=== PATIENT | male | born 1945 | race Caucasian/White ===

== ENCOUNTER → 2019-02-12 16:01 | Outpatient (CLI) | payer MEDICARE, OTHER | END | disposition home or self-care (01) | LOC: D.RAD 16:01 | PROVIDERS: ATTEND Family Medicine | DX: M41.9 Scoliosis, unspecified (principal); M79.671 Pain in right foot; M79.672 Pain in left foot ==

== ENCOUNTER → 2020-11-10 09:02 | Outpatient (CLI) | payer MEDICARE, OTHER | END | disposition home or self-care (01) | LOC: D.HCCARDIO 09:02 → D.HCCECHO 10:00 | PROVIDERS: ATTEND Internal Medicine Cardiovascular Disease | DX: I20.9 Angina pectoris, unspecified (principal); I10 Essential (primary) hypertension ==

== ENCOUNTER 2020-11-22 11:23 | Day surgery (SDC) | payer MEDICARE, OTHER ==
[~2020-11-22] VITALS: Ht 177.8 cm; Wt 92.9 kg
--- NOTE | ~2020-11-22 | HEMODYNAMI ---
PATIENT:JIM QUINTERO MEDICAL RECORD: [id number] : 47 LOCATION:[facility] ADMISSION DATE: 11/22/20 Generatedon:114:04 Patient name: JIM QUINTERO Patient #: [id number] SSN: [id number] : 1945 Date of study: 11/22/2020 Page: Of Hemodynamic Procedure Report Patient Data Patient Demographics Procedure consent was obtained First Name: JIM Gender: Male Last Name: INGRID : 1945 Patient #: [id number] Age: 75 year(s) Race: SSN: [id number] Additional ID: [id number] Contact details Address: [address] State: [place] City: [place] Zip code: [address] Past Medical History Allergies Allergen Reaction Date Comments Reported Penicillins 11/22/2020 Admission Admission Data Admission Date: 11/22/2020 Admission Time: 11:23 Arrival Date: 11/22/2020 Arrival Time: 0:00 Admit Source: Other Insurance Payor: Medicare [facility] #: [id number] Height (in.): 62 BSA: 1.89 (m2) Height (cm.): 157.48 BMI: 35.48 (kg/m2) Weight (lbs.): 194 Weight (kg.): 88 Lab Results Lab Result Date: 11/22/2020 Lab Result Time: 0:00 Biochemistry Name Units Result Min Max BUN mg/dl 16 --(---*)-- 7 18 Creatinine mg/dl 1.1 --(--*-)-- 0.6 1.3 eGFR ml/min 69 *-(----)-- 90 120 NONAFRICAN CBC Name Units Result Min Max Hemoglobin g/dl 16 --(--*-)-- 13.5 17.5 Procedure Procedure Types Cath Procedure Diagnostic Procedure C LH w/Coronaries FFR/IVUS FFR Initial Sedation Charges Moderate Sedation 10-24 minutes Procedure Description Procedure Date Procedure Date: 11/22/2020 Procedure Start Time: 13:39 Procedure Staff Name Function Lance Daley RN Nurse Chad Sylvester MD Performing Physician Sandi Crain RT Scrub Cherry Alvarez RT Monitor Procedure Data Cath Procedure Fluoroscopy Diagnostic fluoroscopy Total fluoroscopy Time: 5.2 time: 5.2 min min Diagnostic fluoroscopy Total fluoroscopy dose: dose: 1157 mGy 1157 mGy Contrast Material Contrast Material Type Amount (ml) Isovue 300 86 Entry Location Entry Primary Successful Side Size Upsize Upsize Entry Closure Vazquez ccessful Closure Location (Fr) 1 (Fr) 2 (Fr) Remarks Device Remarks Radial Right 6 Fr Mechanical artery Short Compression Estimated blood loss: 5 ml Diagnostic catheters Device Type Used For End Catheter Placement DIAGNOSTIC Clinton 110cm 5 LV Angiography Fr catheter ([id number]) DIAGNOSTIC Clinton 110cm 5 Left Coronary Fr catheter (887598) Angiography DIAGNOSTIC Clinton 110cm 5 Right Coronary Fr catheter (702265) Angiography DIAGNOSTIC Pigtail 5Fr Aortic Root catheter ([id number]) Angiography Procedure Complications No complications Procedure Medications Medication Administration Route Dosage Oxygen etCO2 Nasal cannula 2 l/min Lidocaine 2% added to field 20 Heparin Flush Bag added to field 2 bags (1000units/500ml NS) 0.9% NaCl I.V. 100 ml/hr Radial Cocktail added to field 1 syringe (Verapamil 2mg/Nitro 400mcg/Heparin 1500units) Fentanyl I.V. 50 mcg Versed I.V. 1 mg Radial Cocktail I.A. 1 syringe (Verapamil 2mg/Nitro 400mcg/Heparin 1500units) Versed I.V. 1 mg Fentanyl I.V. 50 mcg Versed I.V. 0.5 mg Versed I.V. 0.5 mg Versed I.V. 1 mg Heparin Bolus I.V. 5000 units Hemodynamics Rest BSA: 1.89 (m2) HGB: 16 (g/dl) O2 Consumption: Estimated: 211.02 (ml/min) O2 Cons umption indexed: Estimated:111.65 (ml/min/m) Heart Rate: 61 (bpm) Pressure Samples Time Site Value (mmHg) Purpose Heart Use Rate(bpm) 13:41 LV 116/-7,2 Snapshot 70 13:42 AO 117/67(88) Pullback 61 13:42 LV 101/-6,0 Pullback 61 13:43 AO 89/59(74) Snapshot 61 13:47 AO 100/50(73) Snapshot 63 Gradients Valve Time Site 1 Site 2 Mean SEP/DFP Peak To Heart Use (mmHg) (sec/min) Peak Rate (mmHg) (bpm) Aortic 13:42 LV AO 0 3 0 61 101/-6,0 117/67(88) Calculations Valve P-P Mean Valve Index Valve Source Name Gradient Area Flow (cm2) Aortic 0 0 0 0 Snapshots Pre Cath Intra NCS Post Cath Vital Signs Time Heart Resp SPO2 etCO2 NIBP (mmHg) Rhythm Pain Sedation Rate (ipm) (%) (mmHg) Status Level (bpm) 13:15:19 66 18 98 24.6 168/106(153) NSR 0 (11) 10(A) , No pain 13:19:35 55 11 96 33.6 138/82(93) SB 0 (11) 10(A) , No pain 13:23:47 54 12 93 35.9 124/82(94) SB 0 (11) 10(A) , No pain 13:28:46 53 11 96 35.9 138/82(98) SB 0 (11) 10(A) , No pain 13:32:56 52 12 96 31.4 137/86(122) SB 0 (11) 10(A) , No pain 13:37:04 59 12 95 14.2 132/90(106) SB 0 (11) 10(A) , No pain 13:41:14 61 12 94 29.9 104/78(90) SB 0 (11) 9(A) , No pain 13:45:15 61 14 94 32.1 118/71(97) SB 0 (11) 9(A) , No pain 13:49:23 60 13 96 34.4 107/73(86) SB 0 (11) 9(A) , No pain 13:53:27 58 16 96 31.4 110/69(93) SB 0 (11) 10(A) , No pain 13:57:31 61 14 97 32.9 112/76(89) SB 0 (11) 10(A) , No pain 14:01:34 55 16 98 32.9 122/80(97) SB 0 (11) 10(A) , No pain Medications Time Medication Route Dose Verified Delivered Reason Not es Effectiveness by by 13:14:20 Oxygen etCO2 2 l/min Chad Buffie used for Nasal Higinio Daley RN procedure cannula 13:14:27 Lidocaine 2% added 20ml Chad Chad for local to vial Higinio Sylvester MD anesthetic field 13:14:34 Heparin Flush added 2 bags Chad Chad used for Bag to Higinio Sylvester MD procedure (1000units/500ml field NS) 13:14:45 0.9% NaCl I.V. 100 Chad Buffie Per physician ml/hr Higinio Daley RN 13:15:37 Radial Cocktail added 1 Chad Chad for (Verapamil to syringe Higinio Sylvester MD vasodilation 2mg/Nitro field 400mcg/Heparin 1500units) 13:38:18 Fentanyl I.V. 50 mcg Chad Buffie for sedation Higinio Daley RN 13:38:24 Versed I.V. 1 mg Chad Buffie for sedation Higinio Daley RN 13:40:14 Versed I.V. 1 mg Chad Buffie for sedation Higinio Daley RN 13:40:27 Radial Cocktail I.A. 1 Chad Chad for (Verapamil syringe Higinio Sylvester MD vasodilation 2mg/Nitro 400mcg/Heparin 1500units) 13:42:21 Fentanyl I.V. 50 mcg Chad Buffie for sedation Higinio Daley RN 13:42:44 Versed I.V. 0.5 mg Chad Buffie for sedation Higinio Daley RN 13:45:19 Versed I.V. 0.5 mg Chad Buffie for sedation Higinio Daley RN 13:46:41 Versed I.V. 1 mg Chad Buffie for sedation Higinio Daley RN 13:52:14 Heparin Bolus I.V. 5000 Chad Buffie for james ified units Higinio Daley RN anticoagulation with joaquim ho rn Procedure Log Time Note 11:42:32 Informed consent obtained and on chart 11:42:49 Diagnostic Cath Status : Elective 11:43:07 Arrival Date: 11/22/2020 12:00:00 AM 11:43:08 Admit Source: Other 11:43:12 Insurance Payor : Medicare 11:43:35 ACC Patient presents with Stable Angina CCS Anginal Class 2--Slight limitation of ordinary activity. 11:43:38 Procedure Status Elective Heart Cath (OP). 11:43:40 Time tracking: Regular hours (M-F 7:00 - 5:00) 11:43:45 Plan of Care:Hemodynamics will remain stable., Cardiac rhythm will remain stable., Comfort level will be maintained., Respiratory function will remain adequate., Patient/ family verbilizes understanding of procedure., Procedure tolerated without complication., Recovers from procedure without complications.. 12:54:04 Patient Height : 62 inches 12:54:20 Patient Weight : 194 lbs 12:56:48 Lab Result : eGFR NONAFRICAN 69 ml/min 12:56:48 Lab Result : Hemoglobin 16 g/dl 12:56:48 Lab Result : BUN 16 mg/dl 12:56:48 Lab Result : Creatinine 1.1 mg/dl 12:59:46 Sandi Crain RT(R) sent for patient. Start room use. 13:07:21 Patient received from Pre/Post Procedure Room to CCL 2 Alert and oriented. Tansferred to table in Supine position. 13:07:22 Warm blankets applied, and fede hugger turned on for patient comfort. 13:07:23 Correct patient and procedure confirmed by team. 13:07:23 ECG and BP/O2 sat monitors applied to patient. 13:07:24 Full Disclosure recording started 13:07:52 H&P Date Dictated: 11/01/2020 Within 30 days and on chart., H&P Addendum completed by physician on day of procedure. (MUST COMPLETE FOR ALL OUTPATIENTS). 13:07:53 Pre-procedure instructions explained to patient. 13:07:53 Pre-op teaching completed and patient verbalized understanding. 13:07:55 Family in patients room. 13:07:56 Patient NPO since Midnight. 13:08:10 Patient allergic to Penicillins 13:08:17 Is the patient allergic to Iodine/contrast media? No. 13:09:19 Is patient on blood thinner?No 13:09:22 Bleeding risk .01%. 13:09:24 Patient diabetic? Yes. 13:09:26 If diabetic: On Metformin? No 13:09:44 Previous problem with sedation/anesthesia? No ? 13:09:45 Snore? Yes 13:09:46 Sleep apnea? No 13:09:47 Deviated septum? No 13:09:47 Opens mouth fully? Yes 13:09:48 Sticks out tongue? Yes 13:09:50 Airway obstruction? No ? 13:09:52 Dentures? No ? 13:10:25 Pre procedure: right dorsailis pedis pulse 2+ Normal; easily identifiable; not easily obliterated 13:10:30 Modified Charan's test Radial < 7 seconds 13:10:33 Patient pain scale 0/10 ?. 13:10:42 IV patent on arrival in left forearm with 0.9% NaCl at [facility]. 13:10:48 Lab results completed and on chart. 13:14:10 Vital chart was started 13:14:20 Oxygen 2 l/min etCO2 Nasal cannula was administered by Lance Daley RN; used for procedure; Verbal order read back and verified. 13:14:27 Lidocaine 2% 20ml vial added to field was administered by Chad Sylvester MD; for local anesthetic; Verbal order read back and verified. 13:14:34 Heparin Flush Bag (1000units/500ml NS) 2 bags added to field was administered by Chad Sylvester MD; used for procedure; Verbal order read back and verified. 13:14:45 0.9% NaCl 100 ml/hr I.V. was administered by Lance Daley RN; Per physician; Verbal order read back and verified. 13:15:37 Radial Cocktail (Verapamil 2mg/Nitro 400mcg/Heparin 1500units) 1 syringe added to field was administered by Chad Sylvester MD; for vasodilation; Verbal order read back and verified. 13:16:29 Rhythm: sinus rhythm 13:16:31 Baseline sample Acquired. 13:16:58 Stress Test: yes; abnormal fixed inferior; reversible apical 13:17:03 Risk of Mortality: 0.1 13:17:07 Risk of blood transfusion: 0.1 13:17:10 Risk of JOE: 0.2 13:17:13 Right Radial & Right Groin area was prepped with chlora-prep and draped in sterile fashion 13:17:14 Alarms reviewed by R. N. 13:17:15 Sharps counted by scrub and verified by R.N. 13:17:18 Use device set Radial Dx or PCI 13:17:20 ACIST Syringe (54659) opened to sterile field. 13:17:20 Medline Cath Pack ([id number]) opened to sterile field. 13:17:20 Bag Decanter () opened to sterile field. 13:17:21 ACIST Hand Control (03820) opened to sterile field. 13:17:21 ACIST Manifold (01337) opened to sterile field. 13:17:23 MBrace Wrist Support ([id number]) opened to sterile field. 13:17:24 NEEDLE Cook 21G 4cm Radial (V39889) opened to sterile field. 13:17:26 SHEATH 6FR RAIN (0410226) opened to sterile field. 13:17:28 EMERALD Guide Wire (617-517) opened to sterile field. 13:30:47 Zero performed for pressure channel P1 13:33:02 Physician arrived 13:38:00 Final Timeout: patient, procedure, and site verified with staff and physician. All members of the team are in agreement. 13:38:03 Right Radial & Right Groin site verified by team. 13:38:07 Fire Safety Assessment: A--An alcohol-based skin anteseptic being used preoperatively., C--Open oxygen or nitrous oxide is being used., D--An ESU, laser, or fiber-optic light is being used. 13:38:11 Physical assessment completed. ASA score P 2 - A patient with mild systemic disease as per Chad Sylvester MD. 13:38:15 2) 60-89 Mildly reduced kidney function, and other findings (as for stage 1) point to kidney disease. 13:38:17 Maximum allowable contrast dose (3.7 X eGFR X 0.75)192 ml. 13:38:18 Fentanyl 50 mcg I.V. was administered by Lance Daley RN; for sedation; Verbal order read back and verified. 13:38:20 Sedation plan: IV Moderate Sedation Medication:Versed, Fentanyl 13:38:24 Versed 1 mg I.V. was administered by Lance Daley RN; for sedation; Verbal order read back and verified. 13:38:24 Procedure started. 13:39:27 Local anesthetic to right radial artery with Lidocaine 2% by Chad Sylvester MD.INITIAL ACCESS ONLY 13:39:31 A 6 Fr Short sheath was inserted into the Right Radial artery 13:40:14 Versed 1 mg I.V. was administered by Lance Daley RN; for sedation; Verbal order read back and verified. 13:40:14 A DIAGNOSTIC Clinton 110cm 5 Fr catheter (566525) was advanced over the wire and used for LV Angiography. 13:40:27 Radial Cocktail (Verapamil 2mg/Nitro 400mcg/Heparin 1500units) 1 syringe I.A. was administered by Chad Sylvester MD; for vasodilation; Verbal order read back and verified. 13:42:09 LV gram done using DANIEL 13:42:11 LV hemodynamics recorded. 13:42:14 Injector settings: Ml/sec: 10, Volume: 20, 13:42:19 EF : 55 % 13:42:21 Fentanyl 50 mcg I.V. was administered by Lance Daley RN; for sedation; Verbal order read back and verified. 13:42:44 Versed 0.5 mg I.V. was administered by Lance Daley RN; for sedation; Verbal order read back and verified. 13:42:58 A DIAGNOSTIC Clinton 110cm 5 Fr catheter (985357) was advanced over the wire and used for Left Coronary Angiography. 13:44:56 A DIAGNOSTIC Clinton 110cm 5 Fr catheter (166620) was advanced over the wire and used for Right Coronary Angiography. 13:45:19 Versed 0.5 mg I.V. was administered by Lance Daley RN; for sedation; Verbal order read back and verified. 13:45:29 Catheter removed. 13:46:41 Versed 1 mg I.V. was administered by Lance Daley RN; for sedation; Verbal order read back and verified. 13:46:44 A DIAGNOSTIC Pigtail 5Fr catheter ([id number]) was advanced over the wire and used for Aortic Root Angiography. 13:47:23 Aortic Root visualized 13:49:10 Catheter removed. 13:49:34 GUIDE 6FR XBLAD 3.5 catheter ([id number]) opened to sterile field. 13:49:44 TUBING High Pressure Extension Tubing (Higinio) ([id number]) opened to sterile field. 13:49:45 INFLATOR Merit BasixCompak (VI7862) opened to sterile field. 13:50:39 [place] OmniWire (58827) opened to sterile field. 13:50:46 PCI Cath status Elective 13:51:26 Procedure type changed to Cath procedure, Diagnostic procedure, LHC, LHC w/Coronaries, FFR/IVUS, FFR Initial, Sedation Charges, Moderate Sedation 10-24 minutes 13:51:51 6 Fr XBLAD 3.5 guide catheter was inserted over the wire 13:52:14 Heparin Bolus 5000 units I.V. was administered by Lance Daley RN; for anticoagulation; verified with joaquim ho rn Verbal order read back and verified. 13:53:10 OMNI wire advanced. 13:53:19 Pressure wire advanced. 13:54:39 Wire advanced across lesion. 13:55:39 mLAD lesion measured at 0.94 with IFR 13:56:24 Wire removed. 13:56:34 Guide catheter removed. 13:56:59 ACT drawn. 13:57:11 Sheath removed intact; hemostasis achieved with Mechanical Compression to the Right Radial artery. 13:57:14 Procedure ended.(Physican Out) 13:57:26 Fluoroscopy time 05.20 minutes. 13:57:35 Flurop Dose total: 1157 13:57:35 Fluoroscopy dose: 1157 mGy 13:57:38 Dose Area Product 162 mGy/cm. 13:57:42 Contrast amount:Isovue 300 86ml. 13:57:44 Maximum allowable dose exceeded? No. 13:57:46 Sharps counted by scrub and verified by R.N. 13:57:50 [place] band inflated with 10cc of air. 13:57:52 Insertion/operative site no bleeding no hematoma. 13:58:10 Post right radial artery:stable, clean and dry 13:58:12 Post Procedure Pulses reassessed and unchanged 13:58:19 Post-procedure physical assessment completed. ASA score P 2 - A patient with mild systemic disease as per Chad Sylvester MD. 13:58:26 Post procedure rhythm: unchanged. 13:58:28 Estimated blood loss: 5 ml 13:58:29 Post procedure instruction explained to patient.Patient verbalizes understanding. 13:58:30 Patient needs reinforcement of post procedure teaching. 13:58:34 Procedure Complication : No complications 13:58:40 Operative report dictated upon procedure completion. 13:58:40 See physician's report for complete and final results. 13:58:51 ZEPHYR REGULAR TR BAND (087903) opened to sterile field. 14:00:05 Procedure and supply charges have been captured, reviewed, submitted and are correct. 14:01:35 Report given to Pre/Post Procedure Room. 14:02:21 ACT drawn and resulted at 296 seconds. (normal therapeutic range 180-240 seconds). 14:02:39 Patient transfered to Pre/Post Procedure Room with Stretcher. 14:03:24 Sandi Crain RT(R) was relieved by Cherry Counts RT(R) as monitoring person 14:03:49 Cherry Counts RT(R) was relieved by Cherry Counts RT(R) as monitoring person 14:04:12 Vital chart was stopped Device Usage Item Name Manufacture Quantity Catalog Hospital Part Current Minima l Lot# / Number Charge Number Stock Stock Serial# Code ACIST Acist 1 90041 659881 179017 449099 20 Syringe Medical (80719) Systems Inc Medline Medline 1 [id number] 330666 78872 562607 5 Cath Pack ([id number]) Bag Microtek 1 2001S 094259 52405 637829 5 Decanter Medical Inc. () ACIST Hand Acist 1 47449 153876 314002 319970 5 Control Medical (71988) Systems Inc ACIST Acist 1 77454 595230 231848 477814 5 Manifold Medical (41228) Systems Inc MBrace Advanced 1 140-0250-00 575481 41348 439231 5 Wrist Vascular Support Dynamics (213097396) NEEDLE Cook Cook Medical 1 Z93645 572189 994928 020255 5 21G 4cm Radial (O08992) SHEATH 6FR Cardinal 1 2461669 798487 1860659 332790 5 [facility] (1087320) EMERALD Cardinal 1 502-455 157043 820041 636560 5 Guide Wire Health (502-455) DIAGNOSTIC Terumo 1 40-5013 178585 761769 328541 5 Clinton 110cm 5 Fr catheter (479376) DIAGNOSTIC Cardinal 1 507279P 669518 040411 762752 5 Pigtail 5Fr Health catheter (305374I) GUIDE 6FR Cardinal 1 [id number] 755445 164484 986305 10 XBLAD 3.5 Health catheter (35585842) TUBING High Merit 1 [id number] 495198 05769 865608 10 Pressure Medical Extension Tubing (Sylvester) (UG3842D) INFLATOR Merit 1 JE0959 017204 609567 751677 15 [facility] BasixCompak (AE1441) [place] 1 7889382 040538 64178 9959 5 OmniWire (03653) ZEPHYR Cardinal 1 106389 833743 3086527 507942 5 REGULAR TR Health BAND (455747) Signature Audit [place] Stage Time Signature Unsigned Intra-Procedure 11/22/2020 Lance Daley RN 2:03:04 PM Intra-Procedure 11/22/2020 Cherry 2:03:39 PM Counts RT(R) Intra-Procedure 11/22/2020 Chad Sylvester MD 2:04:09 PM Signatures Nurse : Lance Daley RN Signature : Date : Time : Performing Physician : Signature : Chad Sylvester MD Date : Time : Monitor : Cherry Signature : Counts RT Date : Time : [address] [address]
[2020-11-22] MEDS ORDERED: METOPROLOL TART50 MG PO (12:06)
[2020-11-22] MEDS ORDERED: LIPITOR20 MG PO (12:06)
[2020-11-22] MEDS ORDERED: GLIPIZIDE5 MG PO (12:06)
[2020-11-22 12:31] VITALS: BP 178/82; Ht 177.8 cm; Wt 92.9 kg
[2020-11-22 12:38] LABS: BASOPHILS 0.5 % (0-2); HEMATOCRIT 46.7 % (42.0-54.0); IMMATURE GRANULOCYTES 0.2 % (0-5); LYMPHOCYTE ABS# 1.35 10x3/uL (1.32-3.57); LYMPHOCYTES 23.2 % (15-50); MCH 31.9 pg (26.0-34.0); MCHC 34.3 g/dL (31.0-37.0); MCV 93.2 fL (80.0-100.0); MEAN PLATELET VOLUME 10.1 fL (7.4-10.4); MONOCYTES 8.2 % (2-11); NEUTROPHIL ABS# 3.54 10x3/uL (1.78-5.38); NEUTROPHILS 60.9 % (40-80); PLATELET COUNT 160 10x3/uL (130-400); RBC 5.01 10x6/uL (4.20-6.10); RDW 13.9 % (11.5-14.5); WBC 5.8 10x3/uL (4.8-10.8)
[2020-11-22 12:48] LABS: ANION GAP 13.7 mmol/L (8-16); CALCIUM 9.7 mg/dL (8.5-10.1); CARBON DIOXIDE 25.3 mmol/L (21.0-32.0); CHOL - HDL RATIO 2.9 ratio (2.3-4.9); CREATININE - SERUM 1.1 mg/dL (0.6-1.3); LDL-HDL RATIO 1.6 ratio (1.5-3.5)
--- NOTE | 2020-11-22 14:10 | NUR ---
PT REC'D TO CATH RECOVERY ROOM 9 VIA STRETCHER. MONITORS ESTAB. NO FAMILY AT BS. SEE CALENDER LET OFF HELPER FLOWSHEETS. ALARMS ON AND C/L IN REACH.
--- NOTE | 2020-11-22 14:25 | NUR ---
PT RESTING QUIETLY. R WRIST ZBAND SITE C/D/I, NO S/S BLEEDING OR SWELLING. R ARM/HAND WARM WITH PALP PULSES AND BRISK CAP REFILL. ALARMS ON AND C/L IN REACH.
--- NOTE | 2020-11-22 14:55 | NUR ---
R WRIST Z BAND SITE C/D/I, NO S/S BLEEDING OR HEMATOMA. R ARM/HAND WARM WITH PALP PULSES AND BRISK CAP REFILL. PT RESTING QUIETLY. DENIES PAIN OR NEEDS. ALARMS ON AND C/L IN REACH.
--- NOTE | 2020-11-22 15:10 | NUR ---
PT RESTING QUIETLY. R WRIST Z BAND SITE C/D/I, NO S/S BLEEDING OR HEMATOMA. PULSES PALP. ALARMS ON AND C/L IN REACH.
--- NOTE | 2020-11-22 15:20 | NUR ---
DR. GUEVARA IN TO SEE PT, UPDATE GIVEN AND QUESTIONS ANSWERED.
--- NOTE | 2020-11-22 15:30 | NUR ---
R Z BAND SITE C/D/I, NO S/S BLEEDING OR HEMATOMA. PULSES PALP. VSS. ALARMS ON AND C/L IN REACH.
--- NOTE | 2020-11-22 16:00 | NUR ---
5CC AIR REMOVED FROM Z BANC, NO S/S BLEEDING OR HEMATOMA. PT INSTRUCTED ON S/S TO REPORT TO NURSE. VSS. ALARMS ON AND C/L IN REACH.
--- NOTE | 2020-11-22 16:19 | NUR ---
NO S/S BLEEDING AT Z BAND SITE, TOTAL 7CC AIR REMOVED, PULSES PALP. VSS. PT DENIES PAIN OR NEEDS. REFUSES SANDWICH, APPLE JUICE PROVIDED PER REQUEST. ALARMS ON AND C/L IN REACH.
--- NOTE | 2020-11-22 16:25 | NUR ---
ALL AIR REMOVED FROM Z BAND, NO S/S BLEEDING.
--- NOTE | 2020-11-22 16:40 | NUR ---
ALL DISCHARGE INSTRUCTIONS REVIEWED WITH PT INCLUDING RESTRICTIONS, MEDS AND F/U APPT. PT VERBALIZES UNDERSTANDING. PIV D/C'D INTACT, DSG APPLIED. Z BAND OFF, DSG APPLIED. PT ALLOWED UP TO GET DRESSED AND GO TO BR INDEPENDENTLY.
--- NOTE | 2020-11-22 16:54 | NUR ---
PT D/C'D VIA WC, R WRIST SITE C/D/I, ARM BOARD IN PLACE, TO PRIVATE VEHICLE WITH ALL PAPERWORK AND BELONGINGS.
== END 2020-11-22 16:55 | disposition home or self-care (01) ==
LOC: D.CATH 11:23
PROVIDERS: ATTEND Internal Medicine Cardiovascular Disease
DX: I20.9 Angina pectoris, unspecified (principal); R94.39 Abnormal result of other cardiovascular function study; I10 Essential (primary) hypertension; E11.9 Type 2 diabetes mellitus without complications; I45.10 Unspecified right bundle-branch block